=== PATIENT | female | born 1975 | race Caucasian/White ===

== ENCOUNTER 2019-07-17 17:38 | Emergency (ER) | payer BC, OTHER ==
[2019-07-17 17:55] VITALS: BP 134/77; PULSE 82
--- NOTE | 2019-07-17 18:24 | EDM.PDOC ---
ED HPI GENERAL MEDICAL PROBLEM - General Chief Complaint: Upper Extremity Injury/Pain Stated Complaint: RT RING FINGER KNUCKLE INJURY Time Seen by Provider: 07/17/19 18:00 Source of Information: Reports: Patient History Limitations: Reports: No Limitations - History of Present Illness INITIAL COMMENTS - FREE TEXT/NARRATIVE: 43-year-old female dropped a heavy box and it struck the top of her right hand at the base of the ring finger within the last hour. She has bruising and swelling and is fairly painful to any motion. She was able to get her ring off right away. No other injury. 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: - Past Surgical History GI Surgical History: Reports: Appendectomy, Cholecystectomy, Hernia Repair/Other Musculoskeletal Surgical History: Reports: Other (See Below) Other Musculoskeletal Surgeries/Procedures:: foot Social & Family History - Tobacco Use Smoking Status *Q: Current Every Day Smoker Years of Tobacco use: 25 Packs/Tins Daily: 0.5 - Caffeine Use Caffeine Use: Reports: Coffee Review of Systems - Review of Systems Review Of Systems: See Below Constitutional: Denies: Fever Respiratory: Reports: No Symptoms Cardiovascular: Reports: No Symptoms GI/Abdominal: Reports: No Symptoms Skin: Reports: Other (She does have psoriasis) ED EXAM, GENERAL - Physical Exam Exam: See Below Exam Limited By: No Limitations General Appearance: Alert, No Apparent Distress (Patient is uncomfortable but not distressed) Respiratory/Chest: No Respiratory Distress Extremities: Other (Exam is otherwise limited to the right hand. She has ecchymosis and bruising on the ulnar aspect at the base of the ring finger near the MP joint. It is very tender to palpation, she cannot completely close the hand due to pain. There is no obvious deformity.) Psychiatric: Normal Affect, Normal Mood Course - Vital Signs Last Recorded V/S: Last Vital Signs Temp 100.2 F 07/17/19 17:54 Pulse 82 07/17/19 17:54 Resp 16 07/17/19 17:54 BP 134/77 07/17/19 17:54 Pulse Ox 98 07/17/19 17:54 - Orders/Labs/Meds Orders: Active Orders 24 hr Category Date Time Status Hand Comp Min 3V Rt [CR] Stat Exams 07/17/19 17:55 Taken - Re-Assessments/Exams Free Text/Narrative Re-Assessment/Exam: 07/17/19 18:23 An x-ray of the hand was obtained which was negative for fracture. Because of the intense pain, an ulnar gutter splint, 10 inches of Ortho-Glass, was applied for comfort which she can remove in 2 to 3 days and increase activity as tolerated. Departure - Departure Time of Disposition: 18:28 Disposition: Home, Self-Care 01 Clinical Impression: Contusion of hand, right Qualifiers: Encounter type: initial encounter Qualified Code(s): S60.221A - Contusion of right hand, initial encounter - Discharge Information Instructions: Contusion, [id number] Referrals: PCP,None [Primary Care Provider] - Forms: ED Department Discharge Care Plan Goals: A regular dose of ibuprofen will help, and wear splint for the next few days for comfort. Increase activity as tolerated and consider rechecking in 5 to 7 days if not improving satisfactorily. Sepsis Event Note - Evaluation Sepsis Screening Result: No Definite Risk - Focused Exam Vital Signs: Vital Signs Temp Pulse Resp BP Pulse Ox 07/17/19 17:54 100.2 F 82 16 134/77 98 07/17/19 17:51 100.2 F 82 16 134/77 98 Date Exam was Performed: 07/17/19 Time Exam was Performed: 18:57 - My Orders Last 24 Hours: My Active Orders 07/17/19 17:55 Hand Comp Min 3V Rt [CR] Stat - Assessment/Plan Last 24 Hours: My Active Orders 07/17/19 17:55 Hand Comp Min 3V Rt [CR] Stat
--- NOTE | 2019-07-20 10:07 | CR ---
Hand Comp Min 3V Rt CLINICAL HISTORY: Injury FINDINGS: There is no acute fracture or dislocation of the hand. No osseous lesion is identified. Impression: Negative
== END 2019-07-17 18:28 | disposition home or self-care (01) ==
LOC: JP.ED 17:38
DX: S60.221A Contusion of right hand, initial encounter (principal); Z88.1 Allergy status to other antibiotic agents; F17.210 Nicotine dependence, cigarettes, uncomplicated
CPT/HCPCS: 29126; 73130-26-RT; 73130-RT; 99283-25

== ENCOUNTER 2023-02-27 06:02 | Day surgery (SDC) | payer BC ==
[2023-02-27 06:36] LABS: HEMATOCRIT 40.1 % (34.3-46.0); HEMOGLOBIN 13.6 g/dL (11.2-15.5); MEAN CORPUSCULAR HEMOGLOBIN 29.7 pg (31.6-35.5); MEAN CORPUSCULAR HGB CONC 33.9 g/dL (31.6-35.5); MEAN CORPUSCULAR VOLUME 87.6 fL (81.4-99.0); RED BLOOD CELL COUNT 4.58 M/uL (3.77-5.24); WHITE BLOOD CELL COUNT,WBC 8.9 K/uL (3.2-11.0)
[2023-02-27] MEDS ORDERED: Nozin Nasal Sanitizer NASBOTH ONE (06:45)
[2023-02-27 06:49] LABS: ANION GAP 14.2 mmol/L (5.0-14.0); CALCIUM 8.7 mg/dL (8.5-10.1); CREATININE 0.8 mg/dL (0.6-1.0); EST CRCL DRUG DOSING (CG) 73.46 mL/min; POTASSIUM,K 3.9 mmol/L (3.6-5.2)
[2023-02-27] MEDS ORDERED: Bupivacaine 0.5% 30 ML SDV ONE (06:53)
[2023-02-27] MEDS ORDERED: Midazolam 1 MG/ML 2 ML SDV ONE (06:59)
[2023-02-27] MEDS ORDERED: Lidocaine 0.5% 50 ML SDV ONE (06:59)
[2023-02-27] MEDS ORDERED: Propofol 200 MG/20 ML SDV ONE (06:59)
[2023-02-27] MEDS ORDERED: fentaNYL 100 MCG/2 ML SDV ONE (06:59)
[2023-02-27] MEDS ORDERED: Lactated Ringers 1,000 ML IV SCH (07:00)
[2023-02-27] MEDS ORDERED: ceFAZolin 1 GM in Premix Bag 1 BAG IV ONE (07:30)
[2023-02-27 09:57] VITALS: BP 122/74; PULSE 68
== END 2023-02-27 09:45 | disposition home or self-care (01) ==
LOC: JP.SDS 06:02
PROVIDERS: ATTEND Specialist
DX: G56.02 Carpal tunnel syndrome, left upper limb (principal); F17.200 Nicotine dependence, unspecified, uncomplicated; Z88.0 Allergy status to penicillin
CPT/HCPCS: 36415; 64721; 80048; 85027; A9270; J0690; J2250; J2704; J3010; J3490; J7120

== ENCOUNTER 2023-11-17 20:42 | Emergency (ER) | payer BC ==
[2023-11-17 21:06] VITALS: BP 153/88; PULSE 105
[2023-11-17 22:26] LABS: BASOPHILS ABSOLUTE AUTO 0.05 K/uL (0.00-0.10); BASOPHILS PERCENT AUTO 0.4 % (0.1-1.3); EOSINOPHILS ABSOLUTE AUTO 0.14 K/uL (0.00-0.40); HEMATOCRIT 35.3 % (34.3-46.0); HEMOGLOBIN 12.4 g/dL (11.2-15.5); IMMATURE GRAN ABSOLUTE AUTO 0.05 K/uL (0.00-0.23); IMMATURE GRAN PERCENT AUTO 0.4 % (0.0-0.7); LYMPHOCYTES ABSOLUTE AUTO 2.02 K/uL (0.8-3.3); LYMPHOCYTES PERCENT AUTO 14.2 % (11.4-47.7); MEAN CORPUSCULAR HEMOGLOBIN 30.5 pg (31.6-35.5); MEAN CORPUSCULAR HGB CONC 35.1 g/dL (31.6-35.5); MEAN CORPUSCULAR VOLUME 86.9 fL (81.4-99.0); MONOCYTES ABSOLUTE AUTO 1.17 K/uL (0.20-0.90); MONOCYTES PERCENT AUTO 8.3 % (3.3-12.6); NEUTROPHILS ABSOLUTE AUTO 10.75 K/uL (1.0-7.6); NEUTROPHILS PERCENT AUTO 75.7 % (40.0-78.1); PLATELET COUNT,PLT 184 K/uL (130-375); RED BLOOD CELL COUNT 4.06 M/uL (3.77-5.24); WHITE BLOOD CELL COUNT,WBC 14.2 K/uL (3.2-11.0)
[2023-11-17] MEDS: Sodium Chloride 0.9% 10 ML Syringe FLUSH PRN ×2 (22:27→23:13)
[2023-11-17 22:40] LABS: CALCIUM 9.7 mg/dL (8.5-10.1); CREATININE 0.8 mg/dL (0.6-1.0); EST CRCL DRUG DOSING (CG) 72.65 mL/min; POTASSIUM,K 3.6 mmol/L (3.6-5.2)
[2023-11-17 22:50] LABS: LACTIC ACID 1.2 mmol/L (0.4-2.0)
[2023-11-17 22:52] LABS: ANION GAP 17.6 mmol/L (5.0-14.0)
[2023-11-17] MEDS: Iopamidol 612 MG/ML 100 ML Bottle IV SCH (23:12)
[2023-11-17] MEDS: Sodium Chloride 0.9% 100 ML IV SCH (23:12)
== END 2023-11-18 00:35 | disposition home or self-care (01) ==
LOC: JP.ED 20:42
DX: L03.311 Cellulitis of abdominal wall (principal); Z90.49 Acquired absence of other specified parts of digestive tract; F17.210 Nicotine dependence, cigarettes, uncomplicated; Z88.2 Allergy status to sulfonamides; Z88.0 Allergy status to penicillin
CPT/HCPCS: 36415; 74177; 80048; 83605; 85025; 99284; J3490; Q9967; 99283